=== PATIENT | male | born 1945 | race American Indian/Alaskan Native ===

== ENCOUNTER 2016-07-20 16:03 | Outpatient (CLI) | payer MEDICARE ==
[2016-07-20 16:25] LABS: Hematocrit 38.9 % (35.5-45.6); Hemoglobin 12.7 gm/dl (11.8-15.2); Mean Corpuscular HGB Conc 33 % (32-34); Mean Corpuscular Hemoglobin 29 pg (28-32); Mean Corpuscular Volume 89 fl (84-94); Platelet Count 172 K/mm3 (140-440); Red Blood Count 4.36 M/mm3 (3.65-5.03); Red Cell Distribution Width 14.9 % (13.2-15.2); White Blood Count 8.9 K/mm3 (4.5-11.0)
[2016-07-20 16:44] LABS: Alanine Aminotransferase 11 units/L (7-56); Albumin 4.1 g/dL (3.9-5); Albumin/Globulin Ratio 1.8 %; Alkaline Phosphatase 76 units/L (35-129); BUN/Creatinine Ratio 6.15; Bilirubin,Total 0.2 mg/dL (0.1-1.2); Blood Urea Nitrogen 8 mg/dL (9-20); Calcium 8.8 mg/dL (8.4-10.2); Carbon Dioxide 27 mmol/L (22-30); Chloride 99.6 mmol/L (98-107); Glucose 72 mg/dL (75-100); Potassium 3.9 mmol/L (3.6-5.0); Sodium 140 mmol/L (137-145); Total Protein 6.4 g/dL (6.3-8.2)
[2016-07-20 16:45] LABS: Anion Gap 17 mmol/L
== END 2016-07-20 16:04 | disposition home or self-care (01) ==
LOC: LAB 16:03
PROVIDERS: ATTEND Specialist
DX: R56.9 Unspecified convulsions (principal)
CPT/HCPCS: 36415; 80053; 85027

== ENCOUNTER 2017-12-19 08:53 | Outpatient (CLI) | payer MEDICARE ==
--- NOTE | 2017-12-19 12:05 | Cat Scan Report ---
CT ABDOMEN AND PELVIS WITH CONTRAST INDICATION: Fatty liver. COMPARISON: None similar at this institution. FINDINGS: Abdomen and pelvis CT performed following oral contrast and intravenous administration of 100 cc of Omnipaque 300. LUNG BASES: Slight cardiomegaly possible. No effusions. Mild nonspecific distal esophageal wall prominence/thickening, not excluded for gastroesophageal reflux and/or hiatal hernia, amongst others. ABDOMEN: Numerous hepatic hypodensities, many subcentimeter/indeterminate while largest right hepatic lobe simple cyst is 1.8 cm on axial image 27, series 2. No biliary dilatation. Gallbladder suboptimally distended and assessed. Spleen, pancreas, adrenals, IVC and the kidneys within normal limits. A 0.6 cm right upper renal cortical hypodensity, axial image 103, series 2. Nonaneurysmal abdominal aorta with atherosclerotic aortoiliac calcifications. No ascites or size significant adenopathy. Opacified GI tract nonobstructive. Normal appendix. Moderate colonic stool/possible constipation. PELVIS: Grossly unremarkable urinary bladder and the rectosigmoid. Age-appropriate prostate with tiny intrinsic calcification may also be correlated for clinically and with PSA. No free fluid or significant adenopathy. Approximately 2 cm fat containing right inguinal hernia. Mild lumbar levoscoliosis apex about L3. Moderate to severe L5-S1 disc narrowing with vacuum phenomena and degenerative spurring and mild adjacent sclerosis posteriorly. Approximately 5 mm anterolisthesis of L4 over L5. Mid to lower lumbar facet arthropathy, greatest at L4-L5. Bilateral SI joint degenerative bridging, right more than left. Bilateral hip degenerative changes as well. Demineralized bones. Multilevel spinal degenerative spurring. CONCLUSION: 1. No acute CT abnormality or suggestion of fatty infiltration, to the extent assessed. 2. Other incidental findings as at the lung bases, multiple hepatic hypodensities/cysts, possible constipation and various bony degenerative changes, amongst others, as detailed above. Please correlate. Thank you for the opportunity to participate in this patient's care.
== END 2017-12-19 08:54 | disposition home or self-care (01) ==
LOC: CT 08:53
PROVIDERS: ATTEND Internal Medicine
DX: K40.90 Unilateral inguinal hernia, without obstruction or gangrene, not specified as recurrent (principal); K76.0 Fatty (change of) liver, not elsewhere classified; K76.89 Other specified diseases of liver; M41.86 Other forms of scoliosis, lumbar region; M16.0 Bilateral primary osteoarthritis of hip
CPT/HCPCS: 74177; Q9967